=== PATIENT | male | born 2000 | race Caucasian/White ===

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

== ENCOUNTER 2021-07-26 10:42 | Emergency (ER) | payer SELFPAY ==
[~2021-07-26] VITALS: Ht 175.3 cm; Wt 100.0 kg
[2021-07-26 11:10] VITALS: BP 135/95
[2021-07-26 13:33] LABS: IMMATURE GRANULOCYTES 0.2 % (0.0-5.0); MEAN CORPUSCULAR HGB 29.5 pG CALC (26.0-32.0); MEAN CORPUSCULAR HGB CONC 32.8 g/dL CAL (32.0-36.0); NEUT# 5.88 thou/uL (1.82-7.42); RED BLOOD COUNT 6.2 mill/uL (4.70-6.10); RED CELL DISTRI WIDTH 11.6 % (11.5-15.5)
[2021-07-26 13:34] LABS: HEMATOCRIT 55.8 % (39.0-50.0); HEMOGLOBIN 18.3 g/dl (14.0-18.0)
[2021-07-26 14:55] LABS: ALBUMIN 3.9 g/dL (3.2-5.0); ALKALINE PHOSPHATASE 104 u/l (38-126); ANION GAP 9 (6-22 (CALC)); BILIRUBIN, TOTAL 0.5 mg/dL (0.0-1.4); BUN 11 mg/dL (9-20); BUN/CREATININE RATIO 18 (12-20 (CALC)); CARBON DIOXIDE 26 mmol/l (22-30); CHLORIDE 106 mmol/l (95-108); CREATININE 0.6 mg/dL (0.7-1.3); GFR > 60 ML/MIN (>=60 (CALC)); GFR FOR AFR.AMER. > 60 ML/MIN (>=60 (CALC)); POTASSIUM 3.7 mmol/l (3.5-5.1); SGOT/AST 29 u/l (17-59); SODIUM 138 mmol/l (137-146); TOTAL PROTEIN 7.3 g/dL (6.3-8.2)
[2021-07-26] MEDS ORDERED: BACTRIM DS1 TAB PO (15:14)
[2021-07-26] MEDS ORDERED: OMNI-PAC300 MG PO (15:14)
[2021-07-26] MEDS ORDERED: OFLOXACIN0.3 % OD (15:20)
--- NOTE | 2021-07-28 15:16 | NUR ---
PRELIM BLOOD CX SHOWS GRAM POSITIVE COCCI IN 2 VIALS. PT WAS DISCHARGED ON CEFDINIR AND BACTRIM. RESULTS REPORTED TO DR ROJAS. WILL F/U WITH FINALS
--- NOTE | 2021-07-29 16:03 | NUR ---
Final results called to . 3/4 vials growing Staph Epidermidis. would like the patient to return for cellulitis check. The patient was contacted and denies fever/chills, reports eye feel betters but agrees to return to the ED on 07/30/21.
== END 2021-07-26 15:42 | disposition home or self-care (01) | DRG 603 ==
LOC: ED 10:42
PROVIDERS: Family Medicine
DX: L03.213 Periorbital cellulitis (principal); I10 Essential (primary) hypertension; F17.200 Nicotine dependence, unspecified, uncomplicated
CPT/HCPCS: Q9967

== ENCOUNTER 2022-08-31 20:57 | Emergency (ER) | payer SELFPAY ==
[~2022-08-31] VITALS: Ht 170.2 cm; Wt 131.0 kg
[~2022-08-31 20:57] MED LIST changes: +BACTRIM DS1 TAB PO; +OFLOXACIN0.3 % OD; +OMNI-PAC300 MG PO
[2022-08-31 22:00] VITALS: BP 137/79
[2022-08-31 22:52] LABS: BASO% 0.4 % (0-3); EOS% 0.5 % (0-8); IMMATURE GRANULOCYTES 0.1 % (0.0-5.0); LYMPH% 8.1 % (15-41); MEAN CELL VOLUME 87.3 fL CALC (80.0-100.0); MEAN CORPUSCULAR HGB 29.2 pG CALC (26.0-32.0); MEAN CORPUSCULAR HGB CONC 33.4 g/dL CAL (32.0-36.0); MONO% 13.5 % (2-13); NEUT# 7.43 thou/uL (1.82-7.42); NEUT% 77.4 % (42-76); RED BLOOD COUNT 5.28 mill/uL (4.70-6.10); RED CELL DISTRI WIDTH 11.8 % (11.5-15.5)
[2022-08-31 22:58] LABS: ALBUMIN 4.4 g/dL (3.2-5.0); ALKALINE PHOSPHATASE 100 u/l (38-126); BUN 9 mg/dL (9-20); BUN/CREATININE RATIO 11 (12-20 (CALC)); CHLORIDE 107 mmol/l (95-108); CREATININE 0.8 mg/dL (0.7-1.3); GFR FOR AFR.AMER. > 60 ML/MIN (>=60 (CALC)); GFR OTHER RACES > 60 ML/MIN (>=60 (CALC)); POTASSIUM 3.7 mmol/l (3.5-5.1); SGOT/AST 33 u/l (17-59); SODIUM 137 mmol/l (137-146); TOTAL PROTEIN 7.7 g/dL (6.3-8.2)
[2022-08-31 23:01] LABS: ANION GAP 14 (6-22 (CALC)); BILIRUBIN, TOTAL 0.8 mg/dL (0.2-1.3); CARBON DIOXIDE 20 mmol/l (22-30)
[2022-08-31 23:07] LABS: HEMATOCRIT 46.1 % (39.0-50.0); HEMOGLOBIN 15.4 g/dl (14.0-18.0)
[2022-08-31] MEDS ORDERED: ROBITUSSIN AC10 ML PO (23:15)
[2022-08-31] MEDS ORDERED: ZITHROMAX250 MG PO (23:15)
[2022-08-31 23:25] VITALS: BP 137/79
== END 2022-08-31 23:35 | disposition home or self-care (01) | DRG 153 ==
LOC: ED 20:57
PROVIDERS: Emergency Medicine
DX: J06.9 Acute upper respiratory infection, unspecified (principal); Z20.822 Contact with and (suspected) exposure to COVID-19; R07.89 Other chest pain